=== PATIENT | male | born 1990 | race Caucasian/White ===

== ENCOUNTER 2020-02-27 08:04 | Emergency (ER) | payer BC ==
[~2020-02-27] VITALS: Ht 170.2 cm; Wt 79.4 kg
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
--- OUTSIDE RECORDS SUMMARY | ~2020-02-27 | XMS | Encounter Summary ---
Demographics + + + | Address | [address] | | | [place] [address] | + + + | Home Phone | | + + + | Preferred Language | Unknown | + + + | Marital Status | Single | + + + | Latter-Day Affiliation | Unknown | + + + | Race | White | + + + | Ethnic Group | Not or | + + + Author + + + | Author | [facility] | | | and [place] | + + + | Organization | [facility] | | | and [...] Team Providers + +------+ + | Care Sales Supervisor Name | Role | Phone | + +------+ + PCP | Unavailable | + +------+ + Encounter Details +--------+ + + + + | Date | Type | Department | Care Team | Description | +--------+ + + + + | 11/09/ | Hospital | [facility] | Conversion | | | 2013 | Encounter | [facility] | Transaction, | | | | | CLINIC [address] | Provider Unknown | | | | | [place], [place] | [phone] | | | | | [address] | | | | | | [phone] | | | +--------+ + + + [...] + + documented as of this encounter Plan of Treatment Not on filedocumented as of this encounter Visit Diagnoses Not on filedocumented in this encounter"
--- OUTSIDE RECORDS SUMMARY | ~2020-02-27 | XMS ---
Demographics + + + | Address | [address] | | | [place] [address] | + + + | Preferred Language | Unknown | + + + | Marital Status | Unknown | + + + | Spiritism Affiliation | Unknown | + + + | Race | Unknown | + + + | Ethnic Group | Unknown | + + + Author + + + | Author | [facility] | + + + | Organization | [facility] | + + + | Address | [address] | | | [place] [address] | + + + | Phone | | + + + Care Team Providers + + + + | Care Coffee Roaster Helper Name | Role | Phone | + + + + Unavailable | Unavailable | + + + + PROBLEMS + + + + + + + + | Type | Condition | ICD9-CM | [id number] | Onset | Condition | SNOMED | | | | Code | Code | Dates | Status | Code | + + + + + + + + | Assessment | Contact | L23.9 | | Sep, | Active | [id number] | | | allergic | | | 2016 | | | | | reaction | | | | | | + + + + + + + + ALLERGIES + + + + +---------+ | Substance | Reaction | Event Type | Date | Status | + + + + +---------+ | N.K.D.A. | Unknown | Non Drug | Sep, | Unknown | | | | Allergy | | | + + + + +---------+ SOCIAL HISTORY No smoking Hx information available PLAN OF CARE VITAL SIGNS + + + + | Height | 67 in | 2016-09-21 | + + + + | Weight | 173.2 lbs | 2016-09-21 | + + + + | BMI | 27.12 kg/m2 | 2016-09-21 | + + + + | Temperature | 98.0 degrees Fahrenheit | 2016-09-21 | + + + + | Heart Rate | 54 /min | 2016-09-21 | + + + + | Blood pressure systolic | 135 mm Hg | 2016-09-21 | + + + + | Blood pressure diastolic | 93 mm Hg | 2016-09-21 | + + + + MEDICATIONS + + + + + + + +--------+ | Medicati | Instruct | Dosage | Frequenc | Start | End Date | Duration | Status | | on | ions | | y | Date | | | | + + + + + + + +--------+ | Ibuprofe | Orally | 1 tablet | 6h | | | | Active | | n 200 MG | every 6 | as | | | | | | | | hrs | needed | | | | | | + + + + + + + +--------+ | Cephalex | Orally | 1 tablet | 12h | 17 Apr, | 27 Apr, | 10 | Active | | in 500 | every 12 | | | 2017 | 2017 | day(s) | | | mg | hrs | | | | | | | + + + + + + + +--------+ | Medrol | orally | take 6 | | Sep, | Sep, | 6 days | Active | | Dose | as | tabs po | | 2016 | 2016 | | | | Pack 4mg | directed | 1st | | | | | | | | | day,then | | | | | | | | | reduce | | | | | | | | | by a | | | | | | | | | tablet | | | | | | | | | daily qd | | | | | | | | | 6 days | | | | | | + + + + + + + +--------+ RESULTS No Results PROCEDURES + + + + + | Procedure | Date Ordered | Related Diagnosis | Body Site | + + + + + | Est Level III | September 21, 2016 | | | | Intermediate | | | | + + + + + IMMUNIZATIONS No Known Immunizations"
--- OUTSIDE RECORDS SUMMARY | ~2020-02-27 | XMS | Clinical Summary ---
Demographics + + + | Address | [address] | | | [place] [address] | + + + | Home Phone [...] Author + + + | Author | [facility] | | | and [place] | + + + | Organization | [facility] | | | and [...] Team Providers + +------+ + | Care Cuprous Chloride Helper Name | Role | Phone | + +------+ + PCP | Unavailable | + +------+ + Allergies Not on File Medications Not on file Active Problems Not on file Social History + +-------+ +--------+------+ | Tobacco Use | Types | Packs/Day | Years | Date | | | | | Used | | + +-------+ +--------+------+ | Former Smoker | | 0.5 | | | + +-------+ +--------+------+ + + | Comments: 6years | + + + + + | Sex Assigned at | Date Recorded | | | | + + + | Not on file | | + + + Last Filed Vital Signs Not on file Plan of Treatment + + +-------+ + | Health Maintenance | Due Date | Last | Comments | | | | Done | | + + +-------+ + | Vaccine: | | | | | Dtap/Tdap/Td (1 - | 8 | | | | Tdap) | | | | + + +-------+ + | Vaccine: Influenza | | | | | (#1) | 0 | | | + + +-------+ + Implants + +------+--------+ +--------+--------+--------+ | Implanted | Type | Area | Manufacture | Device | Shelf | Model | | | | | r | | Expira | / | | | | | | Identi | tion | Serial | | | | | | fier | Date | / Lot | + +------+--------+ +--------+--------+--------+ | Plate Kls Locking Fx Plate - | | Left: | JUDIE Guzman | | | [id number] | | [id number]: Qty: 1 on | | Mandib | L.P. | | | -- | | 11/09/2013 by Cali Ruby, | | le | | | | / / | | DMD | | | | | | | + +------+--------+ +--------+--------+--------+ | Plate Kls Mini 2.0 Reg 4h - | | Left: | JUDIE Guzman | | | 25-550 | | [id number]: Qty: 1 on | | Mandib | L.P. | | | -- | | 11/09/2013 by Cali Ruby, | | le | | | | / / | | DMD | | | | | | | + +------+--------+ +--------+--------+--------+ | Screw Kls Locking 2.0x11mm - | | Left: | JUDIE Guzman | | | 25-772 | | [id number]: Qty: 4 on | | Mandib | L.P. | | | - | | 11/09/2013 by Cali Ruby, | | le | | | | / / | | DMD | | | | | | | + +------+--------+ +--------+--------+--------+ | Screw Kls Maxdrive Mini 2.0 | | Left: | JUDIE Guzman | | | 25-872 | | 5mm Single - | | Mandib | L.P. | | | - | | [id number]: Qty: 4 on | | le | | | | / / | | 11/09/2013 by Cali Ruby, | | | | | | | | DMD | | | | | | | + +------+--------+ +--------+--------+--------+ Results Not on filefrom Last 3 Months"
== END 2020-02-27 12:24 | disposition home or self-care (01) ==
LOC: ED 08:04
DX: R10.9 Unspecified abdominal pain (principal); Z88.8 Allergy status to other drugs, medicaments and biological substances
CPT/HCPCS: 74176; 80053; 81001; 83690; 85025; 96374; 99284-25; J1885